=== PATIENT | female | born 1995 | race Caucasian/White ===

== ENCOUNTER 2017-09-18 20:38 | Observation (INO) | payer BC, OTHER ==
[~2017-09-18] VITALS: Ht 160 cm; Wt 98.0 kg
[2017-09-19] MEDS ORDERED: PRENATAL VITAM1 EAC6 PO (04:04)
== END 2017-09-19 08:45 | disposition home or self-care (01) ==
LOC: FBCO 20:38 → FBC 22:20
PROVIDERS: ADMIT Obstetrics & Gynecology
DX: O47.03 False labor before 37 completed weeks of gestation, third trimester (principal); O46.93 Antepartum hemorrhage, unspecified, third trimester; O36.8130 Decreased fetal movements, third trimester, not applicable or unspecified; O99.89 Other specified diseases and conditions complicating pregnancy, childbirth and the puerperium; R03.0 Elevated blood-pressure reading, without diagnosis of hypertension; Z3A.36 36 weeks gestation of pregnancy
CPT/HCPCS: 01960; 59025; 80053; 82570; 84156; 84550; 85025; 87653; 96372; 99213; G0378; J2270; J2550; J3105

== ENCOUNTER 2017-09-20 12:11 | Inpatient (IN) | payer BC, OTHER ==
[~2017-09-20 12:11] MED LIST: PRENATAL VITAM1 EAC6 PO
== END 2017-09-22 11:13 | disposition home or self-care (01) | DRG 774 ==
LOC: FBCO 12:11 → FBC 13:30
PROVIDERS: ADMIT Obstetrics & Gynecology
PROC: 10E0XZZ Delivery of Products of Conception, External Approach (ICD-10-PCS; principal; 2017-09-20)
PROC: 10907ZC Drainage of Amniotic Fluid, Therapeutic from Products of Conception, Via Natural or Artificial Opening (ICD-10-PCS; 2017-09-20)
PROC: 00HU33Z Insertion of Infusion Device into Spinal Canal, Percutaneous Approach (ICD-10-PCS; 2017-09-20)
PROC: 3E0R3BZ Introduction of Anesthetic Agent into Spinal Canal, Percutaneous Approach (ICD-10-PCS; 2017-09-20)
DX: O45.93 Premature separation of placenta, unspecified, third trimester (principal); O60.14X0 Preterm labor third trimester with preterm delivery third trimester, not applicable or unspecified; Z37.0 Single live birth; Z3A.36 36 weeks gestation of pregnancy
CPT/HCPCS: 1960; 36415; 59025; 76815; 85025; 85027; 85384; 85610; 85730; 99213

== ENCOUNTER 2019-11-04 23:58 | Inpatient (IN) | payer OTHER ==
[~2019-11-04] VITALS: Ht 160 cm; Wt 91.0 kg
--- NOTE | 2019-11-05 11:49 | PR ---
[facility] [address] [facility] [place], [place] [address] Signed Progress Notes IP Datetime Report Generated by CPN: 11/05/2019 11:48 PROGRESS NOTES: [id number] Impression: Normal progression of labor; Reassuring heart rate Procedures: Artificial ROM; Sterile Vag Exam Plan: Continue present management VITAL SIGNS: [id number] Vital Signs: Reviewed EXAM: [id number] Dilatation: 5.0 Effacement: 90 Station: -1 Uterine Contractions: q 2 minutes MEMBRANES: [id number] Membrane Status: Intact Comments: Pt seen and examined. Doing well. Comfortable w/ epidural. Desires AROM. Discussed AROM and vertex noted to be well applied. AROM performed for moderate amount of light meconium stained fluid. Mother and baby tolerated well. Fetus A: [id number] FHR Baseline: 140 Variability: Moderate 6-25bpm Accelerations: 15X15 Decelerations: None FHR Category: Category I Presentation: Vertex Comments on Fetus A: No evidence of metabolic acidosis Fetus B: [id number] Signing Physician: Brook Davis DO Copies: ~ *Electronically Signed* 11/05/19 1148 BROOK DAVIS DO PATIENT NAME: JACQUES,ALEX THALIA PROGRESS NOTE DATE OF : 89 PHYSICIAN: BROOK DAVIS DO RPT #: [id number] REPORT IS CONFIDENTIAL AND NOT TO BE RELEASED WITHOUT AUTHORIZATION
--- NOTE | 2019-11-06 09:15 | PR ---
[facility] [address] [facility] [place] [address] Signed PP Progress Notes Datetime Report Generated by CPN: 11/06/2019 09:15 SUBJECTIVE: [id number] Pain: Within normal limits Nausea/Vomiting: Denies Flatus: Yes Vital Signs: [id number] Vital Signs: Reviewed; Within Normal Limits EXAM: [id number] Cardiovascular: Normal Respiratory: Normal Abdomen/Uterus: Normal Lochia: Normal Vulva/Perineum: Not Done Breasts: Not Done CVA Tenderness: Normal Extremities: Normal Incision: Not Applicable Progress: Normal Exam Comments: Fundus firm U-2 nontender IMPRESSION/PLAN/PROCEDURES: [id number] Impression: Normal progression Plan: Continue present management Progress Notes: Pt doing well. No questions or concerns. Planning d/c home tomorrow. Signing Physician: Brook Davis DO Copies: ~ *Electronically Signed* 11/06/19914 BROOK DAVIS DO PATIENT NAME: ALEX HANNA PROGRESS NOTE DATE OF : 95 PHYSICIAN: BROOK DAVIS DO RPT #: [id number] REPORT IS CONFIDENTIAL AND NOT TO BE RELEASED WITHOUT AUTHORIZATION
--- NOTE | 2019-11-07 07:45 | PR ---
[facility] [address] [place], [place] [address] Signed PP Progress Notes Datetime Report Generated by CPN: 11/07/2019 07:45 SUBJECTIVE: [id number] Pain: Within normal limits Nausea/Vomiting: Denies Flatus: Yes Vital Signs: [id number] Vital Signs: Reviewed; Within Normal Limits EXAM: [id number] Cardiovascular: Normal Respiratory: Normal Abdomen/Uterus: Normal Lochia: Normal Vulva/Perineum: Not Done Breasts: Not Done CVA Tenderness: Normal Extremities: Normal Incision: Not Applicable Progress: Normal Exam Comments: Fundus firm U-2 IMPRESSION/PLAN/PROCEDURES: [id number] Impression: Normal progression Plan: Discharge Progress Notes: Pt seen and examined. Doing well. Ambulating, voiding, and tolerating full diet. Pain and lochia minimal. and supplementing. No fevers or other concerns. Desires D/C home. Planning nuvaring. D/C instructions reviewed in detail. F/U 2 wks Signing Physician: Brook Davis DO Copies: ~ *Electronically Signed* 11/07/19 0745 BROOK DAVIS DO PATIENT NAME: ALEX HANNA PROGRESS NOTE DATE OF : 95 PHYSICIAN: BROOK DAVIS DO RPT #: [id number] REPORT IS CONFIDENTIAL AND NOT TO BE RELEASED WITHOUT AUTHORIZATION
== END 2019-11-07 12:48 | disposition home or self-care (01) | DRG 807 ==
LOC: FBCO 23:58 → FBC 11-05 01:50
PROVIDERS: ADMIT Obstetrics & Gynecology
PROC: 10E0XZZ Delivery of Products of Conception, External Approach (ICD-10-PCS; principal; 2019-11-05)
PROC: 10907ZC Drainage of Amniotic Fluid, Therapeutic from Products of Conception, Via Natural or Artificial Opening (ICD-10-PCS; 2019-11-05)
PROC: 00HU33Z Insertion of Infusion Device into Spinal Canal, Percutaneous Approach (ICD-10-PCS; 2019-11-05)
PROC: 3E0R3BZ Introduction of Anesthetic Agent into Spinal Canal, Percutaneous Approach (ICD-10-PCS; 2019-11-05)
DX: O99.824 Streptococcus B carrier state complicating childbirth (principal); Z37.0 Single live birth; Z3A.37 37 weeks gestation of pregnancy; O77.0 Labor and delivery complicated by meconium in amniotic fluid; O69.81X0 Labor and delivery complicated by cord around neck, without compression, not applicable or unspecified; O99.284 Endocrine, nutritional and metabolic diseases complicating childbirth; E03.9 Hypothyroidism, unspecified; Z88.8 Allergy status to other drugs, medicaments and biological substances
CPT/HCPCS: 01960; 36415; 85027; A9270; J2540; J2795; J3010; J7121